=== PATIENT | male | born 1990 | race Asian ===

== ENCOUNTER 2016-09-01 01:56 | Emergency (ER) | payer BC ==
[~2016-09-01] VITALS: Ht 175.3 cm; Wt 104.3 kg
[2016-09-01] MEDS ORDERED: NKM (02:24)
[2016-09-01 02:30] VITALS: BP 118/78
[2016-09-01] MEDS ORDERED: BACTRIM DS TAB1 EAC1 ORAL (03:16)
[2016-09-01] MEDS ORDERED: HYDROCODON-ACE1 EA15 ORAL (03:16)
--- NOTE | 2016-09-01 03:17 | Emergency Room Report ---
History of Present Illness General Chief Complaint: General Complaint Source: Patient Present Illness HPI Is a 25-year-old male with no past medical history. He presents with chief complaint of swollen right toe. He's been doing with the ingrown nail for the last to 3 months. But worse the last week with increasing swelling. Tonight is more swollen and painful. Been draining pain is 8/10. Worse with walking. No other injury. He has an appointment with the injection operator next week. Allergies: Coded Allergies: No Known Allergies (Unverified , 09/01/16) Patient History Past Medical History: none, see triage record, old chart reviewed Past Surgical History: none Pertinent Family History: none Social History: Denies: smoking Immunizations: other Reviewed Nursing Documentation: PMH: Agreed, PSxH: Agreed Nursing Documentation-PMH Past Medical History: No Stated History Review of Systems Eye: Denies: blurred vision, eye pain ENT: Denies: ear pain, nose congestion, throat swelling Respiratory: Denies: cough, shortness of breath Cardiovascular: Denies: chest pain, palpitations Gastrointestinal: Denies: abdominal pain, diarrhea, nausea, vomiting Musculoskeletal: Denies: back pain, joint pain Skin: Denies: rash Neurological: Denies: headache, numbness Endocrine: Denies: increased thirst, increased urine Hematologic/Lymphatic: Denies: easy bruising All Other Systems: negative except mentioned in HPI Physical Exam Vital Signs Date Time Temp Pulse Resp B/P Pulse Ox O2 Delivery O2 Flow Rate FiO2 09/01/16 02:19 98.6 92 16 120/83 96 Room Air vitals normal Sp02 EP Interpretation: reviewed, normal General Appearance: well appearing, no apparent distress, alert Head: normocephalic, atraumatic Eyes: bilateral eye EOMI, bilateral eye PERRL ENT: hearing grossly normal, normal pharynx Neck: full range of motion, supple, no meningismus Respiratory: chest non-tender, lungs clear, normal breath sounds Cardiovascular #1: regular rate, rhythm, no murmur Gastrointestinal: normal bowel sounds, non tender, no mass, no organomegaly, no bruit, non-distended Musculoskeletal: back normal, gait/station normal, normal range of motion, other - Right great toe: Lateral aspect is edematous with erythema. Has ingrown nail. Neurologic: alert, oriented x3 Psychiatric: mood/affect normal Skin: warm/dry Procedures Additional Procedure Procedure Narrative Procedure: Partial nail matrixectomy Indication: Infected ingrown nail Description: Digital block with 1% lidocaine without epinephrine. Total of 2 mL injected. Using a Rosalia forcep to remove about an eighth of the nail. I cut it with a scissor. There was small amount of purulent discharge. Patient tolerated procedure without a problem. No complication. Dressing done by nurse. Medical Decision Making Diagnostic Impression: Primary Impression: Ingrowing nail with infection ER Course Patient with infected ingrown toenail. No evidence of felon. We'll discharge home. Last Vital Signs Date Time Temp Pulse Resp B/P Pulse Ox O2 Delivery O2 Flow Rate FiO2 09/01/16 02:30 98.6 88 17 118/78 98 Room Air Status: improved Disposition: HOME, SELF-CARE Condition: Stable Scripts Hydrocodone/Acetaminophen 5-325* (HYDROCODONE/ACETAMINOPHEN 5-325*) 1 Each Tablet 1 TAB ORAL Q6H Y for For Pain, #20 TAB 0 Refills Prov: WILD RENNER M.D. 09/01/16 Trimethoprim/Sulfamethoxazole 160/800* (BACTRIM DS TABLET*) 1 Each Tablet 1 TAB ORAL Q12H, #14 TAB 0 Refills Prov: WILD RENNER M.D. 09/01/16 Referrals: NOT CHOSEN [facility]/,REFERRING (PCP) Additional Instructions: Followup with your injection operator as scheduled. Keep wound clean. Elevate foot. Return if symptom worsen. WILD RENNER M.D. Sep 01, 2016 03:17
[2016-09-01 03:20] VITALS: BP 115/75
[2016-09-01 03:25] VITALS: BP 115/75
== END 2016-09-01 03:25 | disposition home or self-care (01) ==
LOC: EMR 02:32
DX: L60.0 Ingrowing nail (principal)